=== PATIENT | female | born 1990 | race Two or more races ===

== ENCOUNTER 2019-06-01 06:35 | Emergency (ER) | payer BC, OTHER ==
[~2019-06-01] VITALS: Ht 167.6 cm; Wt 96.6 kg
[2019-06-01 06:35] VITALS: BP 113/82
[2019-06-01] MEDS ORDERED: KETOROLAC TROMETHAMINE 15 MG/ML VIAL ONE (06:49)
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
--- NOTE | 2019-06-01 06:52 | NUR ---
XRAY AT BEDSIDE
[2019-06-01] MEDS ORDERED: KETOROLAC TROMETHAMINE INJ 30 MG/ML VIAL IM ONE (07:00)
--- NOTE | 2019-06-01 07:01 | NUR ---
Patient discharged to home in stable condition. Written and verbal after care instructions given. Patient verbalizes understanding of instruction. Pt wheeled out to car on wheelchair
== END 2019-06-01 07:02 | disposition home or self-care (01) ==
LOC: ER 06:36
DX: S93.491A Sprain of other ligament of right ankle, initial encounter (principal); Z88.1 Allergy status to other antibiotic agents; X50.1XXA Overexertion from prolonged static or awkward postures, initial encounter; Y93.89 Activity, other specified; Y92.89 Other specified places as the place of occurrence of the external cause; Y99.8 Other external cause status
CPT/HCPCS: 73610; 99283; J1885